=== PATIENT | male | born 1935 | race Caucasian/White ===

== ENCOUNTER 2017-09-24 22:25 | Emergency (ER) | payer MEDICARE, SELFPAY ==
[2017-09-24 22:20] VITALS: BP 196/110; PULSE 75; RESP 16; TEMP 36.7; O2SAT 92
--- NOTE | 2017-09-24 22:23 | DI.CT.S_ITS ---
PROCEDURE: CT HEAD/BRAIN WO CON INDICATIONS: TPA CANDIDATE, STROKE, LEFT SIDE WEAKNESS TECHNIQUE: Noncontrast 4.5 mm thick angled axial sections acquired from the foramen magnum to the vertex, with coronal and sagittal reformats. For radiation dose reduction, the following was used: automated exposure control, adjustment of mA and/or kV according to patient size. COMPARISON: None. FINDINGS: Image quality: Excellent. CSF spaces: Basal cisterns are patent. No extra-axial fluid collections. The ventricles are symmetric in size and shape. Brain: No intracranial bleeds or masses. Hyperdense appearance of an insular branch of the right middle cerebral artery concerning for thrombus. There is cerebral volume loss for age, with resultant ventricular and sulcal prominence. There are periventricular and deep white matter chronic small vessel ischemic changes. There is intracranial internal carotid artery atherosclerosis. Skull and face: Calvarium and visualized facial bones appear intact, without suspicious lesions. Sinuses: Visualized sinuses and mastoids are clear. IMPRESSION: Hyperdense appearance of the right middle cerebral artery branch worrisome for thrombus. No acute hemorrhage. Further assessment could be performed with brain MRI Concordant with preliminary study interpretation. Dictated by: Bismark Packer M.D. on 09/25/2017 at 7:26 Approved by: Bismark Packer M.D. on 09/25/2017 at 7:28
--- NOTE | 2017-09-24 22:32 | ED_ITS ---
HPI - Neuro Symptoms/Deficit General Chief Complaint: Neuro Symptoms/Deficit Stated Complaint: Stroke Time Seen by Provider: 09/24/17 22:28 Source: patient, family and EMS Mode of arrival: EMS Limitations: no limitations History of Present Illness HPI Narrative: 81-year-old male with history of hypertension, AFib, hyperlipidemia whom was on Eliquis up until a few months ago presents with a chief complaint of a sudden onset significant left-sided stroke, time onset 2144. Patient has slurred speech, left-sided facial weakness, left upper and lower extremity weakness. The patient did fall was found down by EMS and transported here with a code stroke. Onset (ago): minute(s) Last Observed Normal: 21:45 Timing confirmed by: spouse Location: speech, left face, dysarthria, left arm and left leg History of same: No Severity: severe Quality: weak, numb and tingling Relieving factors: none Exacerbating factors: none Context: sudden onset On Anticoagulants: No Associated symptoms: denies other symptoms Treatments Prior to Arrival: none Related Data Allergies Allergy/AdvReac Type Severity Reaction Status Date / Time amoxicillin [From Augmentin] Allergy Verified 09/24/17 23:11 clavulanic acid Allergy Verified 09/24/17 23:11 [From Augmentin] Review of Systems Review of Systems All systems reviewed & are unremarkable except as noted in HPI and below Constitutional Denies chills, Denies fever(s), Denies lethargy and Reports weakness Eyes Denies change in vision, Denies eye discharge, Denies irritation and Denies loss of vision ENT Ears, Nose, Mouth, and Throat: Denies change in voice, Denies neck pain and Denies sore throat Cardiovascular Denies chest pain, Denies irregular heart rhythm, Denies lightheadedness, Denies palpitations, Denies dyspnea, Denies dyspnea on exertion and Denies orthopnea Respiratory Denies cough, Denies dyspnea, Denies dyspnea on exertion and Denies wheezing Gastrointestinal Gastrointestinal: Denies abdominal pain, Denies change in bowel habits, Denies diarrhea, Denies nausea and Denies vomiting Genitourinary Denies hematuria, Denies flank pain, Denies urinary incontinence and Denies urinary urgency Musculoskeletal Reports abnormal gait, Reports muscle weakness, Denies neck pain and Reports tingling Integumentary/Breasts Denies pruritus, Denies erythema, Denies rash and Denies wounds Neurologic Reports abnormal speech, Reports abnormal gait, Denies confusion, Denies loss of vision, Reports sensory deficit, Reports tingling, Reports paresthesias and Reports weakness Psychiatric Denies anxiety, Denies confusion, Denies depression, Denies homicidal ideation and Denies suicidal ideation Endocrine Denies palpitations Hematologic/Lymphatic Denies easy bruising Allergic/Immunologic Denies wheezing PFSH Medical History Atrial fibrillation (Acute) CKD (chronic kidney disease) (Acute) HTN (hypertension) (Acute) Hyperlipidemia (Acute) Exam Initial Vital Signs Initial Vital Signs: Vital Signs Temperature 98.0 F 09/24/17 22:20 Pulse Rate 75 09/24/17 22:20 Respiratory Rate 16 09/24/17 22:20 Blood Pressure 196/110 H 09/24/17 22:20 Pulse Oximetry 92 09/24/17 22:20 Const General: cooperative, well developed and acute distress Nutritional Appearance: well nourished Orientation: alert, awake, oriented x3 and not confused HENMT Head: normocephalic and atraumatic Ears: external ears normal and TM's normal bilaterally Nose: external nose normal and No nasal discharge Face and sinus: sinuses nontender, face symmetric, no sinus tenderness and No dry mucous membranes Mouth: oral mucosae normal and moist mucous membranes Teeth and gingiva: dentition normal Throat: tonsils normal and uvula midline Eyes General: appearance normal, both eyes and all related structures Eyelids: eyelids normal Conjunctivae: conjunctivae normal Sclera: sclerae normal Pupils: PERRL EOM: EOM intact bilaterally Neck Neck: normal visual inspection, trachea midline, No lymphadenopathy, No midline deformity and No JVD Lymphatic: No lymphedema Chest Chest: normal inspection of the chest Resp Effort & Inspection: normal respiratory effort, able to speak in complete sentences, no respiratory distress and no use of accessory muscles Auscultation: clear to auscultation bilaterally, no rales, no rhonchi and no wheezes Cardio Rate: regular rate Rhythm: regular rhythm Heart Sounds: no click, no gallops, no murmurs and no rubs Pulses: normal peripheral pulses GI Inspection: non-distended Palpation: soft, no hepatosplenomegaly, No guarding, No pulsatile mass and No tender Auscultation: normal bowel sounds Back/Spine/Pelvis Back: No CVA tenderness Cervical Spine: cervical ROM normal and No pain with cervical ROM Thoracic/Lumbar Spine: thoracic and lumbar spine normal to inspection Skin General: no rashes or lesions noted, No jaundice and No petechiae Neuro General: alert and oriented x3 Cognition: normal cognition Speech: abnormal speech Motor: movement abnormality noted and muscle tone abnormal Extrem General: full ROM, no clubbing, cyanosis or edema, no pedal edema and no calf tenderness Psych Appearance: well kempt Mental Status: mental status grossly normal Attitude: cooperative Thought Content: normal and suicidality Judgment: judgment good Scores NIH Stroke Scale Level of Conciousness: Not alert, but arousable by minor stim to obey, answer or respond Ask month/age: Answers both questions correctly. Open/close eyes, close hand: Performs both tasks correctly Best gaze horizontal: Partial gaze palsy, can be overcome by finger tracking, head turning Visual coyne: Complete hemianopia Facial palsy: Partial paralysis, total or near total paralysis of lower face Left arm drift: Drifts down, not to bed Right arm drift: No drift for full 10 sec Left leg drift: No drift for full 10 sec Right leg drift: No drift for full 10 sec Limb ataxia: Absent Sensory on face/arms/legs: Severe to total sensory loss, not aware of touch, coma, quadriplegic Best language: No aphasia, normal Dysarthria: Mild to mod,some slurring Extinction or inattention: Profound andrea-inattention. Does not recognize own hand, one side Total NIH Stroke scale score: 12 Course Orders Ordered: ED Orders 09/24/17 22:23 CT head/brain wo con Stat 09/24/17 22:25 Basic Metabolic Panel Stat Complete Blood Count AUTO DIFF Stat Partial Thromboplastin Time Stat Prothrombin Time INR Stat 09/24/17 22:30 Urine Drug Screen, Rapid Stat EKG-12 Lead Stat Sodium Chloride (Normal Saline 0.9%) 1,000 mls @ 150 mls/hr IV CONT RABIA Reevaluation(s) Reevaluation #1: Patient continues to have significant symptoms including a stroke scale of 10. He has no contraindications to the use of tPA and a suspected MCA occlusion on the noncontrast head CT. Patient and have both can't been consulted and give verbal consent, form being filled out as we speak. TPA being drawn up tPA Contraindications for Ischemic Stroke from [email or web address] on 09/24/2017 All calculations should be rechecked by clinician prior to use RESULT SUMMARY: Patient eligible for tPA. tPA (Tissue Plasminogen Activator) Dosing for Stroke Calculator from [employer] on 09/24/2017 All calculations should be rechecked by clinician prior to use RESULT SUMMARY: 8.3 mg Bolus dose, given IV over 1 min 74.9 mg Infusion, given IV over 60 mins 16.7 mg Waste, to be discarded INPUTS: Weight ?> 92.5 kg INPUTS: Age ?18 ?> 1 = Yes Clinical diagnosis of ischemic stroke causing neurological deficit ?> 1 = Yes Time of symptom onset <4.5 hours ?> 1 = Yes Intracranial hemorrhage on CT ?> 0 = No Clinical presentation suggests subarachnoid hemorrhage ?> 0 = No Neurosurgery, head trauma, or stroke in past 3 months ?> 0 = No Uncontrolled hypertension (>185 mmHg SBP or >110 mmHg DBP) ?> 0 = No History of intracranial hemorrhage ?> 0 = No Known intracranial arteriovenous malformation, neoplasm, or aneurysm ?> 0 = No Active internal bleeding ?> 0 = No Suspected/confirmed endocarditis ?> 0 = No Known bleeding diathesis ?> 0 = No Abnormal blood glucose (<50 or >400 mg/dL) ?> 0 = No Only minor or rapidly improving stroke symptoms ?> 0 = No Major surgery or serious non-head trauma in the previous 14 days ?> 0 = No History of gastrointestinal or urinary tract hemorrhage within 21 days ?> 0 = No Seizure at stroke onset ?> 0 = No Recent arterial puncture at a noncompressible site ?> 0 = No Recent lumbar puncture ?> 0 = No Post myocardial infarction pericarditis ?> 0 = No ?> 0 = No Age >80 years ?> 0 = No History of prior stroke and diabetes ?> 0 = No Any active anticoagulant use (even with INR <1.7) ?> 0 = No <calculator id='[id number]'>NIHSS</calculator> >25 ?> 0 = No CT shows multilobar infarction (hypodensity >1/3 cerebral hemisphere) ?> 0 = No Time: 22:56 Reevaluation #2: 8.3mgtPA bolus 2307 75 tPA drip 2308 Reevaluation #3: Air [facility] had been dispatched, but closes helicopter is [place] grating approximately a 2 hr delay in the patient's arrival. We had an ambulance crew here for another patient which we bumped to allow some more precipitous transfer. [place] ambulance will now be transporting this patient stat by ground to [facility]. Patient denies any headache, continues to be nauseated but has improvement in that he has sensation in his left upper extremity now Time: 23:32 Consultations Consultation #1: [facility] Stroke Contacted. Dr. García, stroke physician is happy to accept and will activate CODE IR with patient to [facility] ED on CODE IR Protocol Time: 23:17 Vital Signs - 8 hr 09/24/17 22:20 09/24/17 22:41 Temperature 98.0 F Pulse Rate 75 67 Respiratory Rate 16 20 Blood Pressure 196/110 H Blood Pressure [Right Arm] 148/83 H Pulse Oximetry 92 93 MDM - Neuro Symptoms/Deficit Lab Data Result diagrams: 09/24/17 22:25 09/24/17 22:25 Lab Results 09/24/17 09/24/17 09/24/17 Range/Units 22:25 22:25 22:25 WBC 5.1 (4.5-11.0) X10^3/uL RBC 3.79 L (4.5-5.9) X10^6/uL Hgb 11.9 L (13.5-17.5) g/dL Hct 35.3 L (41-53) % MCV 93.3 (80-100) fL MCH 31.5 (26-34) PG MCHC 33.8 (30-36) % RDW 17.3 H (11.6-14.8) % Plt Count 170 (150-400) X10^3/uL Neut % (Auto) 62.5 (50-75) % Lymph % (Auto) 21.1 L (25-40) % Delta % (Auto) 11.2 (3-14) % Eos % (Auto) 4.4 H (2-4) % Baso % (Auto) 0.8 (0-2) % Neut # (Auto) 3200 (6423-7649) /uL PT 11.6 (10.1-12.7) SECONDS INR 1.1 (0.9-1.3) APTT 26 L (26.4-36.2) SECONDS Sodium 139 (137-145) mmol/L Potassium 4.7 (3.4-5.1) mmol/L Chloride 104 (98-107) mmol/L Carbon Dioxide 24 (22-32) mmol/L BUN 38 H (9-20) mg/dL Creatinine 2.70 H (0.66-1.25) mg/dL Estimated GFR 22.8 L (>60) mL/min BUN/Creatinine Ratio 14.1 (6-22) Glucose 93 (80-110) mg/dL Calcium 9.2 (8.4-10.2) mg/dL ECG Data Attestation: I personally reviewed and interpreted this ECG as follows: Prior ECG tracings: not available for review Interpretation: AFib Critical Care Time Critical Care Time: Yes Total Critical Care Time: 40 Attestation: The high probability of a clinically significant, sudden or life threatening deterioration of the [neurologic] system(s) required my full and direct attention, intervention and personal management. The aggregate critical care time was [40] minutes. This time is in addition to time spent performing reported procedures but includes the following: [x] Data Review and interpretation [x] Patient assessment and monitoring of vital signs [x] Documentation [x] Medication orders and management Discharge Plan Departure [facility] Clinical Impression: Acute embolic stroke
[2017-09-24 22:41] VITALS: BP 148/83; PULSE 67; RESP 20; O2SAT 93
[2017-09-24 22:55] LABS: INR 1.1 (0.9-1.3); Prothrombin Time 11.6 SECONDS (10.1-12.7)
[2017-09-24 22:58] LABS: PTT Partial Thromboplastin Tim 26 SECONDS (26.4-36.2)
[2017-09-24 22:59] LABS: BUN Creatinine Ratio 14.1 (6-22); Blood Urea Nitrogen 38 mg/dL (9-20); Calcium 9.2 mg/dL (8.4-10.2); Carbon Dioxide 24 mmol/L (22-32); Chloride 104 mmol/L (98-107); Estimated Glomerular Filt Rate 22.8 mL/min (>60); Glucose 93 mg/dL (80-110); HEMOLYSIS 37 (0-50); Potassium 4.7 mmol/L (3.4-5.1); Sodium 139 mmol/L (137-145)
[2017-09-24] MEDS: ALTEPLASE 100 MG VIAL 8 MG IV (23:07)
[2017-09-24 23:08] VITALS: BP 171/88; PULSE 66; RESP 10; TEMP 36.4
[2017-09-24 23:08] LABS: Add Manual Diff / Slide Review NO; Basophils Percent Auto 0.8 % (0-2); Eosinophils Percent Auto 4.4 % (2-4); Hematocrit 35.3 % (41-53); Hemoglobin 11.9 g/dL (13.5-17.5); Lymphocytes Percent Auto 21.1 % (25-40); Mean Corpuscular HGB Conc 33.8 % (30-36); Mean Corpuscular Hemoglobin 31.5 PG (26-34); Mean Corpuscular Volume 93.3 fL (80-100); Monocytes Percent Auto 11.2 % (3-14); Neutrophils Absolute Auto 3200 /uL (3000-5900); Neutrophils Percent Auto 62.5 % (50-75); Platelet Count 170 X10^3/uL (150-400); Red Blood Cell Count 3.79 X10^6/uL (4.5-5.9); Red Cell Distribution Width 17.3 % (11.6-14.8); White Blood Cell Count 5.1 X10^3/uL (4.5-11.0)
[2017-09-24] MEDS: ALTEPLASE 100 MG VIAL 75 MG IV (23:08)
[2017-09-24 23:23] VITALS: BP 146/79; PULSE 76; RESP 18; TEMP 36.4
[2017-09-24] MEDS: ONDANSETRON 4 MG/2 ML INJ IV ×2 (23:41)
== END 2017-09-24 23:50 | disposition short-term general hospital (02) ==
PROVIDERS: Emergency Provider Emergency Medicine
DX: I63.9 Cerebral infarction, unspecified (principal)
CPT/HCPCS: 70450; 80048; 82962; 85025; 85610; 85730; 93005; 93041; 96365; 96375; 99284; 99285; 99291; 99292; J2405; J2997